=== PATIENT | male | born 1990 | race Caucasian/White ===

== ENCOUNTER → 2024-03-22 | Outpatient (REF) ==
[~2024-03-22] MED LIST: ACET1TAB55 PO; BUPR150T12 PO; IBUP-1729 PO; TESS100C PO
== END ==
LOC: M PLAIMG 12:34
PROVIDERS: ATTEND Nurse Practitioner Family
DX: M54.50 Low back pain, unspecified (principal)

== ENCOUNTER 2024-04-15 06:15 | Day surgery (SDC) | payer OTHER ==
[~2024-04-15] VITALS: Ht 180.3 cm; Wt 95.9 kg
[2024-04-15] MEDS ORDERED: LR 1,000 ML IV SCH ×2 (06:35→09:45)
[2024-04-15] MEDS ORDERED: fentaNYL 100 MCG/2 ML INJECTION As Ordered ONE (07:00)
[2024-04-15] MEDS ORDERED: ONDANSETRON 4MG 2ML VIAL As Ordered ONE (07:08)
[2024-04-15] MEDS ORDERED: propofoL 200 MG/20 ML VIAL As Ordered ONE (07:10)
[2024-04-15] MEDS ORDERED: LIDOCAINE 2% 100MG/5ML SDV (FOR ANES.) As Ordered ONE (07:10)
[2024-04-15] MEDS ORDERED: SUGAMMADEX SODIUM 500 MG/5 ML VIAL (BRIDION) As Ordered ONE (07:13)
[2024-04-15] MEDS ORDERED: ACETAMINOPHEN 1000MG 100ML IV BAG As Ordered ONE (07:13)
[2024-04-15] MEDS ORDERED: MIDAZOLAM INJ 2MG/2ML VIAL As Ordered ONE (07:26)
[2024-04-15] MEDS: ceFAZolin SOD 2 GM in IV 1 EA IV ONE (08:40)
[2024-04-15] MEDS: TRANEXAMIC ACID 100 MG/ML 10ML VIAL As Ordered ONE (08:45)
[2024-04-15] MEDS ORDERED: KETOROLAC 60MG 2ML VIAL As Ordered ONE (09:07)
[2024-04-15] MEDS: TRANEXAMIC ACID 100 MG/ML 10ML VIAL IV ONE (09:10)
[2024-04-15] MEDS: LIDOCAINE W/EPINEPHRINE 1% 20ML VIAL As Ordered ONE (09:18)
[2024-04-15] MEDS ORDERED: dexmedeTOMIDine (4MCG/ML)200MCG/50ML BTL (PRECEDEX) As Ordered ONE (09:23)
[2024-04-15] MEDS ORDERED: ONDANSETRON 4MG 2ML VIAL IV PRN (09:45)
[2024-04-15] MEDS ORDERED: HYDROMORPHONE HCL 0.5 MG/ 0.5 ML SYRINGE IV PRN (09:45)
[2024-04-15] MEDS ORDERED: oxyCODONE 5MG TAB PO PRN (09:45)
[2024-04-15] MEDS ORDERED: fentaNYL 100 MCG/2 ML INJECTION IV PRN (09:45)
[2024-04-15 11:18] VITALS: BP 99/55; TEMP 97.4; O2SAT 98
== END 2024-04-15 11:20 | disposition home or self-care (01) ==
LOC: M SDC 06:15
PROVIDERS: ATTEND Orthopaedic Surgery
DX: T84.84XA Pain due to internal orthopedic prosthetic devices, implants and grafts, initial encounter (principal); F17.218 Nicotine dependence, cigarettes, with other nicotine-induced disorders; F32.A Depression, unspecified; Z79.899 Other long term (current) drug therapy; Z88.5 Allergy status to narcotic agent
CPT/HCPCS: 20680; 73050; C9290; J0131; J0665; J0690; J1100; J1885; J2250; J2405; J3010